=== PATIENT | female | born 1950 | race Two or more races ===

== ENCOUNTER 2016-11-22 16:47 | Inpatient (IN) | payer OTHER, MEDICAID ==
[~2016-11-22] VITALS: Ht 152.4 cm; Wt 116.2 kg
[~2016-11-22 16:47] MED LIST: ALLO100T PO; ALPR1TAB7 PO; ASPI-266 PO; CAPT12.533 PO; DOX100C PO; FURO20TA3 PO; GABA800T97 PO; INDO75CA PO; LEVO200T45 PO; LEVO25TA6 PO; LITH300T11 PO; LORA1TAB12 PO; METF-312 PO; METO-169 PO; NAP500T PO; OMEG1CAP10 PO; OXYB15TA12 PO; PENT400T21 PO; ZIPR80CA9 PO
[2016-11-23] MEDS ORDERED: SODIUM CHLORIDE 0.9% 250 ML IV ONE (09:28)
[2016-11-23] MEDS ORDERED: METOCLOPRAMIDE HCL 5MG/ml INJ 2ml VIAL IV ONE (09:30)
[2016-11-23] MEDS ORDERED: NALBUPHINE HCL 10 MG/1ml INJECTION IV ONE ×2 (09:30→15:15)
[2016-11-23 10:23] LABS: Basophils # (auto) 0.1 uL; Basophils % (auto) 0.5 % (0.0-2.0); Eosinophils # (auto) 0.3 uL; Eosinophils % (auto) 2.1 % (0.0-7.0); Hematocrit 44.3 % (36.0-46.0); Hemoglobin 14.6 g/dL (12.2-16.2); Lymphocytes # (auto) 2.9 uL; Lymphocytes % (auto) 22.9 % (10.0-50.0); Mean Corpuscular Hemoglobin 27.6 pg (28.0-32.0); Mean Corpuscular Hgb Conc. 32.9 g/dL (32.0-36.0); Mean Corpuscular Volume 83.9 fL (80.0-100.0); Mean Platelet Volume 7.9 fL (7.4-10.4); Monocytes # (auto) 0.9 uL; Monocytes % (auto) 7.6 % (0.0-12.0); Neutrophils # (auto) 8.3 uL; Neutrophils % (auto) 66.9 % (37.0-80.0); Platelet Count (auto) 320 10^3/uL (140-450); Red Cell Distribution Width 15.4 % (11.6-16.0); White Blood Cell 12.4 10^3/uL (4.4-10.8)
[2016-11-23 10:30] LABS: Albumin 3.5 g/dL (3.4-5.0); BUN/Creatinine Ratio 21.4; Bilirubin, Total 0.3 mg/dL (0.2-1.0); Calcium 9.8 mg/dL (8.5-10.1); Magnesium 1.9 mg/dL (1.6-2.6); Potassium 4.2 mmol/L (3.5-5.1); Total Protein 7.6 g/dL (6.4-8.2)
[2016-11-23 10:42] LABS: B-Type Natriuretic Peptide 10.5 pg/mL (0-100)
[2016-11-23 10:46] LABS: Temperature: 22.5 C (20.0-25.0)
[2016-11-23 13:16] LABS: Urine Bilirubin Negative (Negative); Urine Blood Negative /uL (Negative); Urine Color Colorless (Yellow); Urine Glucose Normal (Normal); Urine Ketone Negative (Negative); Urine Nitrite Negative (Negative); Urine RBC <1 /hpf (0 - 4); Urine Urobilinogen Normal (Negative)
[2016-11-23] MEDS ORDERED: cefTRIAXone 1GM/50ML D5W 50 ML IV ONE ×2 (15:30→16:00)
[2016-11-23] MEDS ORDERED: MORPHINE SULF INJ 2 MG/ML SYRINGE 1ML IV PRN (16:00)
[2016-11-23] MEDS ORDERED: HYDROcodone-ACET 5/325MG TAB PO PRN (16:00)
[2016-11-23] MEDS ORDERED: ACETAMINOPHEN 500 MG TAB PO PRN (16:00)
[2016-11-23] MEDS ORDERED: NITROGLYCERIN 0.4 MG SL TAB SL PRN (16:00)
[2016-11-23] MEDS ORDERED: PROMETHAZINE HCL 25 MG/ML 1ML IV PRN (16:00)
[2016-11-23] MEDS ORDERED: DEXTROSE (50%) 50ML SYRG IV PRN (16:00)
[2016-11-23] MEDS ORDERED: TEMAZEPAM 15 MG CAP PO PRN (16:00)
[2016-11-23] MEDS ORDERED: LORazepam 0.5 MG TAB PO PRN (16:00)
[2016-11-23] MEDS ORDERED: ASPirin-EC 81 mg tab PO ONE (16:45)
[2016-11-23] MEDS ORDERED: ENOXAPARIN SOD 40 MG/0.4 ML SYRINGE SC ONE (16:45)
[2016-11-23] MEDS: InsuLIN REG 1unit/0.01ml Soln (100units/ml) SC SCH ×2 (17:21→22:00)
[2016-11-23] MEDS: ACCU-CHEK COMFORT CURVE STRIP VI SCH ×2 (17:21→22:20)
[2016-11-23] MEDS ORDERED: LEVOTHYROXINE SODIUM 25 MCG TAB PO ONE (17:30)
[2016-11-23] MEDS ORDERED: LEVOTHYROXINE SODIUM 100 MCG TAB PO ONE (17:30)
[2016-11-23] MEDS ORDERED: GABAPENTIN 300 MG CAP PO ONE (17:30)
[2016-11-23] MEDS ORDERED: FAMOTIDINE 20 MG TAB PO ONE (17:30)
[2016-11-23] MEDS ORDERED: FUROSEMIDE 20 MG TAB PO ONE (17:30)
[2016-11-23] MEDS: OMEGA PO SCH (18:00)
[2016-11-23 19:19] VITALS: BP 102/55
[2016-11-23] MEDS ORDERED: INFLUENZA QUAD 2016-2017 0.5 ML SYRG IM ONE (19:30)
[2016-11-23] MEDS ORDERED: PNEUMOCOCCAL VACC POLYS 25 MCG/0.5 ML VIAL IM ONE (19:30)
[2016-11-23] MEDS: PENTOXIFYLLINE 400 MG ER TAB PO SCH (20:01)
[2016-11-23] MEDS: MORPHINE SULF INJ 2 MG/ML SYRINGE 1ML IV PRN (21:11)
[2016-11-23] MEDS ORDERED: PATIENTS OWN MEDICATION (Lorazepam 1 TAB) PO SCH (22:00)
[2016-11-23] MEDS: GABAPENTIN 300 MG CAP PO SCH (22:00)
[2016-11-23] MEDS: OXYBUTYNIN CHL 5 MG TAB PO SCH (22:11)
[2016-11-23] MEDS: LITHIUM CARBONATE 300 MG TAB PO SCH (22:11)
[2016-11-23] MEDS: ALLOPURINOL 100 MG TAB PO SCH (22:11)
[2016-11-23] MEDS: FAMOTIDINE 20 MG TAB PO SCH (22:11)
[2016-11-23] MEDS: ALPRAZolam 0.5 MG TAB PO SCH (22:12)
[2016-11-23 22:30] VITALS: BP 107/52
[2016-11-23] MEDS: ZIPRASIDONE HCL 80 MG CAP PO SCH (22:44)
[2016-11-24 00:31] VITALS: BP 98/58
[2016-11-24] MEDS: MORPHINE SULF INJ 2 MG/ML SYRINGE 1ML IV PRN ×2 (03:27→09:59)
[2016-11-24 05:30] VITALS: BP 90/57
[2016-11-24] MEDS: GABAPENTIN 300 MG CAP PO SCH ×2 (05:57→14:00)
[2016-11-24] MEDS: ALPRAZolam 0.5 MG TAB PO SCH ×2 (05:57→14:00)
[2016-11-24 06:12] LABS: Basophils # (auto) 0 uL; Basophils % (auto) 0.4 % (0.0-2.0); Eosinophils # (auto) 0.4 uL; Eosinophils % (auto) 4.5 % (0.0-7.0); Hematocrit 40.9 % (36.0-46.0); Hemoglobin 13.3 g/dL (12.2-16.2); Lymphocytes # (auto) 2.9 uL; Lymphocytes % (auto) 29.6 % (10.0-50.0); Mean Corpuscular Hemoglobin 27.1 pg (28.0-32.0); Mean Corpuscular Hgb Conc. 32.5 g/dL (32.0-36.0); Mean Corpuscular Volume 83.5 fL (80.0-100.0); Mean Platelet Volume 7.8 fL (7.4-10.4); Monocytes # (auto) 0.9 uL; Monocytes % (auto) 9.2 % (0.0-12.0); Neutrophils # (auto) 5.6 uL; Neutrophils % (auto) 56.3 % (37.0-80.0); Platelet Count (auto) 260 10^3/uL (140-450); Red Cell Distribution Width 15.6 % (11.6-16.0); White Blood Cell 9.9 10^3/uL (4.4-10.8)
[2016-11-24] MEDS: ACCU-CHEK COMFORT CURVE STRIP VI SCH ×3 (06:42→17:00)
[2016-11-24] MEDS: InsuLIN REG 1unit/0.01ml Soln (100units/ml) SC SCH ×3 (06:43→17:00)
[2016-11-24 06:54] LABS: Albumin 3.1 g/dL (3.4-5.0); BUN/Creatinine Ratio 23.8; Bilirubin, Total 0.3 mg/dL (0.2-1.0); Calcium 9.9 mg/dL (8.5-10.1); Potassium 3.9 mmol/L (3.5-5.1); Total Protein 6.7 g/dL (6.4-8.2)
[2016-11-24 08:00] VITALS: BP 112/61
[2016-11-24] MEDS: OMEGA PO SCH (08:00)
[2016-11-24] MEDS ORDERED: cefTRIAXone 1GM/50ML D5W 50 ML IV SCH (09:00)
[2016-11-24] MEDS: PENTOXIFYLLINE 400 MG ER TAB PO SCH ×2 (09:54→12:16)
[2016-11-24] MEDS: ZIPRASIDONE HCL 80 MG CAP PO SCH (09:54)
[2016-11-24] MEDS: OXYBUTYNIN CHL 5 MG TAB PO SCH (09:56)
[2016-11-24] MEDS: LITHIUM CARBONATE 300 MG TAB PO SCH (09:56)
[2016-11-24] MEDS: FAMOTIDINE 20 MG TAB PO SCH (09:58)
[2016-11-24] MEDS: ALLOPURINOL 100 MG TAB PO SCH (09:58)
[2016-11-24] MEDS ORDERED: FUROSEMIDE 20 MG TAB PO SCH (10:00)
[2016-11-24] MEDS ORDERED: CAPTOPRIL 12.5 MG TAB PO SCH (10:00)
[2016-11-24] MEDS ORDERED: METOPROLOL SUCCINATE XL 50 MG TAB PO SCH (10:00)
[2016-11-24] MEDS ORDERED: ENOXAPARIN SOD 40 MG/0.4 ML SYRINGE SC SCH (10:00)
[2016-11-24] MEDS ORDERED: LEVOTHYROXINE SODIUM 100 MCG TAB PO SCH (10:00)
[2016-11-24] MEDS ORDERED: ASPirin-EC 81 mg tab PO SCH (10:00)
[2016-11-24] MEDS ORDERED: LEVOTHYROXINE SODIUM 25 MCG TAB PO SCH (10:00)
[2016-11-24 12:00] VITALS: BP 116/64
== END 2016-11-24 15:00 | disposition home or self-care (01) | DRG 871 ==
LOC: ER 16:50 → TELE 16:51 → TELE-CENTR 11-23 18:14
PROVIDERS: ADMIT Internal Medicine; ATTEND Internal Medicine
PROC: 3E0234Z Introduction of Serum, Toxoid and Vaccine into Muscle, Percutaneous Approach (ICD-10-PCS; principal; 2016-11-23)
DX: A41.9 Sepsis, unspecified organism (principal); N17.0 Acute kidney failure with tubular necrosis; N39.0 Urinary tract infection, site not specified; I13.0 Hypertensive heart and chronic kidney disease with heart failure and stage 1 through stage 4 chronic kidney disease, or unspecified chronic kidney disease; F31.32 Bipolar disorder, current episode depressed, moderate; M75.102 Unspecified rotator cuff tear or rupture of left shoulder, not specified as traumatic; E86.0 Dehydration; S43.302A Subluxation of unspecified parts of left shoulder girdle, initial encounter; G89.29 Other chronic pain; M54.5 Low back pain; I50.9 Heart failure, unspecified; F41.9 Anxiety disorder, unspecified; F31.9 Bipolar disorder, unspecified; M19.011 Primary osteoarthritis, right shoulder; M10.9 Gout, unspecified; E05.90 Thyrotoxicosis, unspecified without thyrotoxic crisis or storm; E66.01 Morbid (severe) obesity due to excess calories; M50.30 Other cervical disc degeneration, unspecified cervical region; E11.21 Type 2 diabetes mellitus with diabetic nephropathy; E03.9 Hypothyroidism, unspecified; E11.22 Type 2 diabetes mellitus with diabetic chronic kidney disease; E88.81 Metabolic syndrome and other insulin resistance; M19.012 Primary osteoarthritis, left shoulder; N18.9 Chronic kidney disease, unspecified; Z81.8 Family history of other mental and behavioral disorders; Z82.0 Family history of epilepsy and other diseases of the nervous system; Z82.3 Family history of stroke; Z86.73 Personal history of transient ischemic attack (TIA), and cerebral infarction without residual deficits; Z82.49 Family history of ischemic heart disease and other diseases of the circulatory system; Z83.3 Family history of diabetes mellitus; Z79.82 Long term (current) use of aspirin; Z79.899 Other long term (current) drug therapy; Z23 Encounter for immunization
CPT/HCPCS: 36415; 51702; 71020; 72040; 73030; 80053; 80061; 81001; 81002; 82550; 82962; 83036; 83735; 83880; 84439; 84443; 84481; 84484; 85025; 85652; 86141; 87086; 87088; 87186; 93005; 94761; 96361; 96365; 96372; 96375; 96376; J0696; J1815

== ENCOUNTER 2018-09-02 09:26 | Inpatient (IN) | payer OTHER ==
[~2018-09-02] VITALS: Ht 152.4 cm; Wt 88.1 kg
[~2018-09-02 09:26] MED LIST changes: +ALL100T PO; -ALLO100T PO; -ALPR1TAB7 PO; -ASPI-266 PO; +ASPI81CH43 PO; -CAPT12.533 PO; +CARV3.1240 PO; +CHOL500014 PO; +CYCL5TAB PO; -DOX100C PO; +ESCI10TA53 PO; -FURO20TA3 PO; +GABA300C10 PO; -GABA800T97 PO; +HYDR-4795 PO; -INDO75CA PO; -LEVO200T45 PO; +LEVO200T46 PO; -LEVO25TA6 PO; -LITH300T11 PO; +LITH300T5 PO; -METF-312 PO; -METO-169 PO; -NAP500T PO; -OMEG1CAP10 PO; -PENT400T21 PO; +QUET50TA PO; +WARF6TAB20 PO; -ZIPR80CA9 PO
[2018-09-02] MEDS ORDERED: SODIUM CHLORIDE 0.9% 1,000 ML IV ONE ×3 (09:59→14:50)
[2018-09-02] MEDS ORDERED: SODIUM CHLORIDE 0.9% 500 ML IVB ONE (09:59)
[2018-09-02 10:45] LABS: Urine Bacteria FEW /hpf (None Seen); Urine Blood TRACE /uL (Negative); Urine Specific Gravity 1.009 (1.001-1.035); Urine WBC 233 /hpf (0 - 5); Urine WBC Clumps PRESENT /hpf (None Seen)
[2018-09-02 10:58] LABS: Basophils # (auto) 0.1 uL; Basophils % (auto) 0.6 % (0.0-2.0); Eosinophils # (auto) 0.1 uL; Eosinophils % (auto) 0.4 % (0.0-7.0); Hematocrit 33.5 % (36.0-46.0); Hemoglobin 10.2 g/dL (12.2-16.2); Lymphocytes # (auto) 2.1 uL; Lymphocytes % (auto) 13.6 % (10.0-50.0); Mean Corpuscular Hemoglobin 24.7 pg (28.0-32.0); Mean Corpuscular Hgb Conc. 30.6 g/dL (32.0-36.0); Mean Corpuscular Volume 80.9 fL (80.0-100.0); Monocytes % (auto) 6.7 % (0.0-12.0); Neutrophils % (auto) 78.7 % (37.0-80.0); Nucleated Red Blood Cells % 0.1 %; Platelet Count (auto) 557 10^3/uL (140-450); Red Blood Cells 4.14 10^6/uL (4.0-5.20); Red Cell Distribution Width 18.1 % (11.8-14.3); White Blood Cell 15.2 10^3/uL (4.4-10.8)
[2018-09-02 11:12] LABS: INR 1.07 (0.9-1.15); Partial Thromboplastin Time 28.6 sec (23.78-33.04); Prothrombin Time 11.4 sec (9.27-12.13)
[2018-09-02 11:13] LABS: Albumin 3.1 g/dL (3.4-5.0); Anion Gap 7 (5-15); Blood Urea Nitrogen 40 mg/dL (7-18); Calcium 12.6 mg/dL (8.5-10.1); Carbon Dioxide 21 mmol/L (21-32); Chloride 106 mmol/L (98-107); Glucose 121 mg/dL (74-106); Magnesium 2.1 mg/dL (1.6-2.6); Potassium 4.4 mmol/L (3.5-5.1); Sodium 134 mmol/L (136-145)
[2018-09-02 11:16] LABS: Alanine Aminotransferase 13 U/L (13-56); Alkaline Phosphatase 176 U/L (45-117); Aspartate Aminotransferase 13 U/L (15-37); BUN/Creatinine Ratio 20.4; Bilirubin, Total 0.3 mg/dL (0.2-1.0); GFR African American 33 mL/min; GFR Non-African American 27 mL/min; Total Protein 9.6 g/dL (6.4-8.2)
[2018-09-02] MEDS ORDERED: cefTRIAXone 1GM/10ml IVPUSH 10 ML IV ONE (11:45)
[2018-09-02 12:42] LABS: Alcohol, Urine < 3.0 mg/dL (0-5); Amphetamine Screen, Urine NEGATIVE (NEGATIVE); Barbiturate Scree,Urine NEGATIVE (NEGATIVE); Benzodiazephine Screen, Urine NEGATIVE (NEGATIVE); Cannabinoid Screen, Urine NEGATIVE (NEGATIVE); Cocaine Screen, Urine NEGATIVE (NEGATIVE); Opiate Scree,Urine NEGATIVE (NEGATIVE); Phencyclidine Screen, Urine NEGATIVE (NEGATIVE)
[2018-09-02] MEDS ORDERED: FUROSEMIDE 40 MG/4 ML VIAL IV ONE ×2 (13:30→13:45)
[2018-09-02] MEDS ORDERED: SODIUM CHLORIDE 0.9% 1,000 ML IV SCH (13:33)
[2018-09-02] MEDS ORDERED: TEMAZEPAM 15 MG CAP PO PRN (13:45)
[2018-09-02] MEDS ORDERED: LACTULOSE 20Gm/30ML SOLN PO PRN ×2 (13:45)
[2018-09-02] MEDS ORDERED: ONDANSETRON HCL 4 MG/2 ML VIAL IV PRN (13:45)
[2018-09-02] MEDS ORDERED: LABETALOL HCL 5 MG/ML ML 20ML VIAL IV PRN (13:45)
[2018-09-02] MEDS ORDERED: MORPHINE SULFATE 4 MG/ML SYR/VIAL IV PRN (13:45)
[2018-09-02] MEDS ORDERED: HYDROcodone-ACET 5/325MG TAB PO PRN (13:45)
[2018-09-02] MEDS ORDERED: NITROGLYCERIN 0.4 MG SL TAB SL PRN (13:45)
[2018-09-02] MEDS ORDERED: DEXTROSE (50%) 50ML SYRG IV PRN (13:45)
[2018-09-02] MEDS ORDERED: ASPirin 81 mg TAB PO ONE (14:00)
[2018-09-02] MEDS ORDERED: PANTOPRAZOLE 40 MG TAB PO ONE (14:00)
[2018-09-02] MEDS ORDERED: LACTULOSE 20Gm/30ML SOLN PO ONE (14:00)
[2018-09-02] MEDS ORDERED: ENOXAPARIN SOD 30 MG/0.3 ML SYRINGE SC ONE (14:00)
[2018-09-02] MEDS: LORazepam 0.5 MG TAB PO PRN (14:22)
[2018-09-02] MEDS ORDERED: ZIPR80CA8 PO (15:32)
[2018-09-02 15:33] LABS: CRP High Sensitivity 3.21 mg/dL (< 0.3)
[2018-09-02 17:00] VITALS: BP 152/42
[2018-09-02] MEDS: ACCU-CHEK COMFORT CURVE STRIP VI SCH ×2 (18:03→22:31)
[2018-09-02] MEDS: InsuLIN REG 1unit/0.01ml Soln (100units/ml) SC SCH ×2 (18:03→22:00)
[2018-09-02 19:42] VITALS: BP 152/42
[2018-09-02] MEDS: MORPHINE SULFATE 4 MG/ML SYR/VIAL IV PRN (19:53)
[2018-09-02 20:00] VITALS: BP 126/62
[2018-09-02 20:58] VITALS: BP 126/62
[2018-09-02] MEDS ORDERED: ATORVASTATIN 20 MG TAB PO SCH (22:00)
[2018-09-02] MEDS: SODIUM CHLORIDE 0.9% 1,000 ML IV SCH (22:30)
[2018-09-02] MEDS: ATORVASTATIN 20 MG TAB PO SCH (22:31)
[2018-09-03] VITALS (7 sets, daily range): BP systolic 97–156; BP diastolic 51–78
[2018-09-03] MEDS: MORPHINE SULFATE 4 MG/ML SYR/VIAL IV PRN (02:07)
[2018-09-03] MEDS: LORazepam 0.5 MG TAB PO PRN (02:54)
[2018-09-03 05:18] LABS: Basophils # (auto) 0.1 uL; Eosinophils # (auto) 0.3 uL; Hemoglobin 10.1 g/dL (12.2-16.2); Lymphocytes # (auto) 2.2 uL; Monocytes # (auto) 0.9 uL; Monocytes % (auto) 7.2 % (0.0-12.0); Neutrophils % (auto) 72.8 % (37.0-80.0)
[2018-09-03 05:21] LABS: Basophils % (auto) 0.7 % (0.0-2.0); Eosinophils % (auto) 2.6 % (0.0-7.0); Hematocrit 31.2 % (36.0-46.0); Lymphocytes % (auto) 16.7 % (10.0-50.0); Mean Corpuscular Hemoglobin 25.3 pg (28.0-32.0); Mean Corpuscular Hgb Conc. 32.3 g/dL (32.0-36.0); Mean Corpuscular Volume 78.3 fL (80.0-100.0); Neutrophils # (auto) 9.5 uL; Platelet Count (auto) 593 10^3/uL (140-450); Red Blood Cells 3.99 10^6/uL (4.0-5.20); Red Cell Distribution Width 18.6 % (11.8-14.3); White Blood Cell 13.1 10^3/uL (4.4-10.8)
[2018-09-03 05:31] LABS: Albumin 2.9 g/dL (3.4-5.0); BUN/Creatinine Ratio 20.2; Calcium 12.4 mg/dL (8.5-10.1); Potassium 3.7 mmol/L (3.5-5.1)
[2018-09-03 05:37] LABS: Bilirubin, Total 0.4 mg/dL (0.2-1.0); Total Protein 8.4 g/dL (6.4-8.2)
[2018-09-03] MEDS: InsuLIN REG 1unit/0.01ml Soln (100units/ml) SC SCH ×4 (06:42→22:00)
[2018-09-03] MEDS: ACCU-CHEK COMFORT CURVE STRIP VI SCH ×4 (06:42→22:12)
[2018-09-03] MEDS: SODIUM CHLORIDE 0.9% 1,000 ML IV SCH ×2 (09:56→18:30)
[2018-09-03] MEDS: ENOXAPARIN SOD 30 MG/0.3 ML SYRINGE SC SCH (09:56)
[2018-09-03] MEDS: ASPirin 81 mg TAB PO SCH (09:57)
[2018-09-03] MEDS: PANTOPRAZOLE 40 MG TAB PO SCH (09:57)
[2018-09-03] MEDS ORDERED: ENOXAPARIN SOD 40 MG/0.4 ML SYRINGE SC SCH (10:00)
[2018-09-03] MEDS ORDERED: POTASSIUM CHL 20MEQ/100ML 100 ML IV ONE ×2 (12:15→18:45)
[2018-09-03] MEDS ORDERED: LEVOFLOXACIN 250MG 50 ML IV SCH (12:15)
[2018-09-03 13:29] LABS: Folate (Folic Acid) 6.81 ng/mL (5.38-24)
[2018-09-03] MEDS: ACETAMINOPHEN 500 MG TAB PO PRN (16:25)
[2018-09-03] MEDS: LEVOFLOXACIN 250MG 50 ML IV SCH (17:48)
[2018-09-03] MEDS: ATORVASTATIN 20 MG TAB PO SCH (22:11)
[2018-09-03] MEDS: ASCORBIC ACID 500 MG TAB PO SCH (22:12)
[2018-09-04] MEDS: SODIUM CHLORIDE 0.9% 1,000 ML IV SCH ×2 (03:44→16:06)
[2018-09-04 05:00] VITALS: BP 138/65
[2018-09-04] MEDS: ACCU-CHEK COMFORT CURVE STRIP VI SCH ×4 (06:35→22:26)
[2018-09-04] MEDS: InsuLIN REG 1unit/0.01ml Soln (100units/ml) SC SCH ×4 (06:35→22:00)
[2018-09-04 06:45] LABS: Basophils # (auto) 0.1 uL; Hematocrit 30.2 % (36.0-46.0); Hemoglobin 9.7 g/dL (12.2-16.2)
[2018-09-04 06:51] LABS: Basophils % (auto) 0.7 % (0.0-2.0); Eosinophils % (auto) 7.9 % (0.0-7.0); Lymphocytes # (auto) 2.3 uL; Lymphocytes % (auto) 18.3 % (10.0-50.0); Mean Corpuscular Hemoglobin 25.1 pg (28.0-32.0); Mean Corpuscular Hgb Conc. 32.2 g/dL (32.0-36.0); Monocytes # (auto) 0.8 uL; Monocytes % (auto) 6.5 % (0.0-12.0); Neutrophils # (auto) 8.5 uL; Neutrophils % (auto) 66.6 % (37.0-80.0); Nucleated Red Blood Cells % 0.1 %; Platelet Count (auto) 572 10^3/uL (140-450); Red Blood Cells 3.87 10^6/uL (4.0-5.20); Red Cell Distribution Width 18.4 % (11.8-14.3); White Blood Cell 12.7 10^3/uL (4.4-10.8)
[2018-09-04 07:00] LABS: BUN/Creatinine Ratio 16.4; Calcium 11.4 mg/dL (8.5-10.1); Magnesium 1.8 mg/dL (1.6-2.6); Potassium 3.5 mmol/L (3.5-5.1)
[2018-09-04 08:00] VITALS: BP_SYST 138; BP_SYST 153; BP_DIAS 65; BP_DIAS 75
[2018-09-04] MEDS: PANTOPRAZOLE 40 MG TAB PO SCH (10:34)
[2018-09-04] MEDS: MULTIPLE VITAMIN TAB PO SCH (10:34)
[2018-09-04] MEDS: ASPirin 81 mg TAB PO SCH (10:34)
[2018-09-04] MEDS: LEVOFLOXACIN 250MG 50 ML IV SCH (10:35)
[2018-09-04] MEDS: ENOXAPARIN SOD 30 MG/0.3 ML SYRINGE SC SCH (10:37)
[2018-09-04 13:00] VITALS: BP 136/71
[2018-09-04] MEDS ORDERED: ERTAPENEM SOD INJ 1 GM in SODIUM CHL 0.9% 50 ML IV ONE (15:30)
[2018-09-04] MEDS: ERTAPENEM SOD INJ 0.5 GM in SODIUM CHL 0.9% 50 ML IV SCH (16:06)
[2018-09-04] MEDS: ASCORBIC ACID 500 MG TAB PO SCH ×2 (16:06→22:24)
[2018-09-04 17:00] VITALS: BP 123/63
[2018-09-04 20:00] VITALS: BP 125/81
[2018-09-04 22:08] VITALS: BP 125/81
[2018-09-04] MEDS: ATORVASTATIN 20 MG TAB PO SCH (22:24)
[2018-09-05 04:58] VITALS: BP 127/56
[2018-09-05 05:31] LABS: Basophils # (auto) 0.1 uL; Lymphocytes # (auto) 2.4 uL; Monocytes # (auto) 0.8 uL; Red Cell Distribution Width 18.8 % (11.8-14.3)
[2018-09-05 05:39] LABS: Basophils % (auto) 0.9 % (0.0-2.0); Eosinophils # (auto) 1.1 uL; Eosinophils % (auto) 9.7 % (0.0-7.0); Hemoglobin 9.9 g/dL (12.2-16.2); Lymphocytes % (auto) 21.1 % (10.0-50.0); Mean Corpuscular Hemoglobin 25.1 pg (28.0-32.0); Mean Corpuscular Volume 78.5 fL (80.0-100.0); Monocytes % (auto) 6.7 % (0.0-12.0); Neutrophils # (auto) 6.9 uL; Neutrophils % (auto) 61.6 % (37.0-80.0); Red Blood Cells 3.95 10^6/uL (4.0-5.20); White Blood Cell 11.3 10^3/uL (4.4-10.8)
[2018-09-05 05:41] LABS: Platelet Count (auto) 539 10^3/uL (140-450)
[2018-09-05 05:44] LABS: Calcium 11.3 mg/dL (8.5-10.1)
[2018-09-05 05:46] LABS: BUN/Creatinine Ratio 15.6
[2018-09-05] MEDS: InsuLIN REG 1unit/0.01ml Soln (100units/ml) SC SCH ×2 (06:30→11:30)
[2018-09-05] MEDS: ACCU-CHEK COMFORT CURVE STRIP VI SCH ×2 (06:31→11:58)
[2018-09-05 08:00] VITALS: BP 156/70
[2018-09-05 08:22] VITALS: BP 145/75
[2018-09-05] MEDS: ERTAPENEM SOD INJ 0.5 GM in SODIUM CHL 0.9% 50 ML IV SCH (09:36)
[2018-09-05] MEDS: MULTIPLE VITAMIN TAB PO SCH (09:37)
[2018-09-05] MEDS: ASCORBIC ACID 500 MG TAB PO SCH (09:37)
[2018-09-05] MEDS: PANTOPRAZOLE 40 MG TAB PO SCH (09:37)
[2018-09-05] MEDS: ENOXAPARIN SOD 30 MG/0.3 ML SYRINGE SC SCH (09:37)
[2018-09-05] MEDS: ASPirin 81 mg TAB PO SCH (09:37)
[2018-09-05] MEDS: SODIUM CHLORIDE 0.9% 1,000 ML IV SCH ×2 (10:00)
[2018-09-05 11:43] VITALS: BP 149/62
[2018-09-05] MEDS ORDERED: ERTAPENEM SOD INJ 0.5 GM in SODIUM CHL 0.9% 50 ML IV ONE (13:00)
[2018-09-05 13:05] VITALS: BP 156/70
[2018-09-05] MEDS: ACETAMINOPHEN 500 MG TAB PO PRN (15:04)
[2018-09-05 17:00] VITALS: BP 142/77
[2018-09-06] MEDS ORDERED: ERTAPENEM SOD INJ 1 GM in SODIUM CHL 0.9% 50 ML IV SCH (10:00)
== END 2018-09-05 17:30 | disposition home or self-care (01) | DRG 682 ==
LOC: EDBD 09:26 → ER 09:26 → TELE 09:27 → TELE-EAST 14:35
PROVIDERS: ADMIT Internal Medicine; ATTEND Family Medicine
DX: N17.9 Acute kidney failure, unspecified (principal); G92 Toxic encephalopathy; N39.0 Urinary tract infection, site not specified; E44.1 Mild protein-calorie malnutrition; I69.354 Hemiplegia and hemiparesis following cerebral infarction affecting left non-dominant side; N18.4 Chronic kidney disease, stage 4 (severe); E83.52 Hypercalcemia; E66.01 Morbid (severe) obesity due to excess calories; E03.9 Hypothyroidism, unspecified; D63.1 Anemia in chronic kidney disease; E78.5 Hyperlipidemia, unspecified; E11.21 Type 2 diabetes mellitus with diabetic nephropathy; F20.9 Schizophrenia, unspecified; F31.9 Bipolar disorder, unspecified; G47.33 Obstructive sleep apnea (adult) (pediatric); I48.91 Unspecified atrial fibrillation; I12.9 Hypertensive chronic kidney disease with stage 1 through stage 4 chronic kidney disease, or unspecified chronic kidney disease; E11.22 Type 2 diabetes mellitus with diabetic chronic kidney disease; M54.9 Dorsalgia, unspecified; G89.29 Other chronic pain; M10.9 Gout, unspecified; M19.90 Unspecified osteoarthritis, unspecified site; R29.6 Repeated falls; B96.1 Klebsiella pneumoniae [K. pneumoniae] as the cause of diseases classified elsewhere; Z79.82 Long term (current) use of aspirin; Z79.899 Other long term (current) drug therapy; Z80.0 Family history of malignant neoplasm of digestive organs; Z80.1 Family history of malignant neoplasm of trachea, bronchus and lung; Z80.3 Family history of malignant neoplasm of breast; Z80.41 Family history of malignant neoplasm of ovary; Z80.8 Family history of malignant neoplasm of other organs or systems; Z81.8 Family history of other mental and behavioral disorders; Z82.0 Family history of epilepsy and other diseases of the nervous system; Z82.3 Family history of stroke; Z82.49 Family history of ischemic heart disease and other diseases of the circulatory system; Z82.5 Family history of asthma and other chronic lower respiratory diseases; Z82.62 Family history of osteoporosis; Z83.3 Family history of diabetes mellitus; Z95.0 Presence of cardiac pacemaker; Z68.37 Body mass index [BMI] 37.0-37.9, adult
CPT/HCPCS: 36415; 70450; 71045; 80048; 80053; 80061; 80307; 81001; 82150; 82550; 82607; 82746; 82962; 83036; 83605; 83690; 83735; 83970; 84155; 84156; 84165; 84166; 84443; 84484; 85025; 85045; 85610; 85652; 85730; 86141; 87040; 87081; 87086; 87088; 87186; 92610; 93005; 93306; 93886; 94660; 95819; 96361; 96374; 97110; 97163; 97530; J0696; J1335; J1815; J3480

== ENCOUNTER 2019-01-05 12:46 | Inpatient (IN) | payer OTHER | END 2019-01-11 18:56 | disposition home or self-care (01) | LOC: ER 12:46 → TELE 17:53 → TELE-EAST 22:12 | DX: A41.9 Sepsis, unspecified organism (principal); G93.41 Metabolic encephalopathy; I16.1 Hypertensive emergency; I12.9 Hypertensive chronic kidney disease with stage 1 through stage 4 chronic kidney disease, or unspecified chronic kidney disease; N18.3 Chronic kidney disease, stage 3 (moderate); E66.01 Morbid (severe) obesity due to excess calories; E11.22 Type 2 diabetes mellitus with diabetic chronic kidney disease; E78.5 Hyperlipidemia, unspecified; E03.9 Hypothyroidism, unspecified ==

== ENCOUNTER 2019-05-14 14:33 | Inpatient (IN) | payer OTHER | END 2019-05-18 18:55 | disposition home or self-care (01) | LOC: ER 14:33 → OVERFLOW 14:34 → EAST 23:33 | DX: A41.9 Sepsis, unspecified organism (principal); G93.41 Metabolic encephalopathy; N39.0 Urinary tract infection, site not specified; L89.322 Pressure ulcer of left buttock, stage 2; N18.3 Chronic kidney disease, stage 3 (moderate); E83.52 Hypercalcemia; E11.8 Type 2 diabetes mellitus with unspecified complications; I10 Essential (primary) hypertension; E07.9 Disorder of thyroid, unspecified ==

== ENCOUNTER 2019-10-02 19:21 | Emergency (ER) | payer BC, OTHER ==
[~2019-10-02] VITALS: Ht 165.1 cm; Wt 113.4 kg
[~2019-10-02 19:21] MED LIST changes: -ALL100T PO; -ASPI81CH43 PO; -CHOL500014 PO; +CITA10TA70 PO; -CYCL5TAB PO; -ESCI10TA53 PO; +FAM20T PO; +PRAV20TA3 PO; -WARF6TAB20 PO; +ZIPR80CA8 PO
[2019-10-02 21:25] LABS: Basophils # (auto) 0.1 uL; Basophils % (auto) 0.9 % (0.0-2.0); Eosinophils # (auto) 0.6 uL; Eosinophils % (auto) 5.6 % (0.0-7.0); Hematocrit 33.9 % (36.0-46.0); Hemoglobin 11.2 g/dL (12.2-16.2); Lymphocytes # (auto) 2.4 uL; Lymphocytes % (auto) 22.6 % (10.0-50.0); Mean Corpuscular Hemoglobin 27.5 pg (28.0-32.0); Mean Corpuscular Hgb Conc. 33.2 g/dL (32.0-36.0); Mean Corpuscular Volume 82.9 fL (80.0-100.0); Monocytes # (auto) 1.1 uL; Monocytes % (auto) 10.4 % (0.0-12.0); Neutrophils # (auto) 6.4 uL; Neutrophils % (auto) 60.5 % (37.0-80.0); Platelet Count (auto) 315 10^3/uL (140-450); Red Blood Cells 4.09 10^6/uL (4.0-5.20); Red Cell Distribution Width 14.6 % (11.8-14.3); White Blood Cell 10.6 10^3/uL (4.4-10.8)
[2019-10-02 21:34] LABS: INR 1.05 (0.9-1.15); Partial Thromboplastin Time 32.8 sec (23.64-32.05)
[2019-10-02 21:37] LABS: Alanine Aminotransferase 15 U/L (13-56); Albumin 3.1 g/dL (3.4-5.0); Amylase 66 U/L (25-115); Anion Gap 5 (5-15); Aspartate Aminotransferase 15 U/L (15-37); BUN/Creatinine Ratio 15.7; Blood Urea Nitrogen 27 mg/dL (7-18); Calcium 9.6 mg/dL (8.5-10.1); Carbon Dioxide 24 mmol/L (21-32); Chloride 94 mmol/L (98-107); GFR African American 38 mL/min; GFR Non-African American 31 mL/min; Glucose 106 mg/dL (74-106); Lipase 280 U/L (73-393); Magnesium 1.8 mg/dL (1.6-2.6); Potassium 4.2 mmol/L (3.5-5.1); Sodium 123 mmol/L (136-145)
[2019-10-02 21:42] LABS: Alkaline Phosphatase 129 U/L (45-117); Bilirubin, Total 0.3 mg/dL (0.2-1.0); Total Protein 7.5 g/dL (6.4-8.2)
[2019-10-02 22:03] LABS: Urine Bacteria NONE SEEN /hpf (None Seen); Urine Blood 1+ /uL (Negative); Urine Specific Gravity 1.004 (1.001-1.035); Urine WBC 65 /hpf (0 - 5)
[2019-10-02] MEDS ORDERED: SODIUM CHL 3% 500 ML IV ONE (22:15)
[2019-10-02 22:24] LABS: Alcohol, Urine < 3.0 mg/dL (0-5); Amphetamine Screen, Urine NEGATIVE (NEGATIVE); Barbiturate Scree,Urine NEGATIVE (NEGATIVE); Benzodiazephine Screen, Urine NEGATIVE (NEGATIVE); Cannabinoid Screen, Urine NEGATIVE (NEGATIVE); Cocaine Screen, Urine NEGATIVE (NEGATIVE); Opiate Scree,Urine NEGATIVE (NEGATIVE); Phencyclidine Screen, Urine NEGATIVE (NEGATIVE)
[2019-10-02] MEDS ORDERED: cefTRIAXone 1GM/50ML D5W 50 ML IV ONE (22:30)
[2019-10-03 01:24] LABS: BUN/Creatinine Ratio 17.3; Calcium 9.6 mg/dL (8.5-10.1); Potassium 4.1 mmol/L (3.5-5.1)
[2019-10-03 03:23] LABS: BUN/Creatinine Ratio 16.9; Calcium 9.9 mg/dL (8.5-10.1); Potassium 4.3 mmol/L (3.5-5.1)
[2019-10-03] MEDS ORDERED: FUROSEMIDE 20 MG/2 ML VIAL IV ONE (04:45)
[2019-10-03 11:16] VITALS: BP 128/66
[2019-10-16] MEDS ORDERED: BISA10SU45 RE (04:50)
[2019-10-16] MEDS ORDERED: ONDA-155 PO (04:50)
[2019-10-16] MEDS ORDERED: ACET650S12 RE (04:50)
[2019-10-16] MEDS ORDERED: HYOS0.1269 (04:50)
== END 2019-10-03 11:24 | disposition home or self-care (01) ==
LOC: EDBD 19:21 → ER 19:21
DX: E87.1 Hypo-osmolality and hyponatremia (principal); E11.22 Type 2 diabetes mellitus with diabetic chronic kidney disease; I12.9 Hypertensive chronic kidney disease with stage 1 through stage 4 chronic kidney disease, or unspecified chronic kidney disease; N18.9 Chronic kidney disease, unspecified; N39.0 Urinary tract infection, site not specified; F31.9 Bipolar disorder, unspecified; E78.5 Hyperlipidemia, unspecified; Z86.73 Personal history of transient ischemic attack (TIA), and cerebral infarction without residual deficits; Z95.0 Presence of cardiac pacemaker; Z87.891 Personal history of nicotine dependence
CPT/HCPCS: 36415; 71045; 74176; 80048; 80053; 80307; 81001; 82150; 83605; 83690; 83735; 83880; 83930; 83935; 84295; 84484; 85025; 85610; 85730; 87086; 96365; 96375; 99284; J0696; J1940; 87088; 87186

== ENCOUNTER 2019-10-07 17:47 | Emergency (ER) | payer BC, MEDICAID ==
[~2019-10-07] VITALS: Ht 152.4 cm; Wt 90.7 kg
[2019-10-07 18:56] LABS: Hemoglobin 12.5 g/dL (12.2-16.2); Red Blood Cells 4.55 10^6/uL (4.0-5.20)
[2019-10-07 18:59] LABS: Basophils # (auto) 0.1 uL; Basophils % (auto) 0.9 % (0.0-2.0); Eosinophils # (auto) 0.5 uL; Eosinophils % (auto) 5.7 % (0.0-7.0); Hematocrit 38.4 % (36.0-46.0); Lymphocytes % (auto) 20.4 % (10.0-50.0); Mean Corpuscular Hemoglobin 27.6 pg (28.0-32.0); Mean Corpuscular Hgb Conc. 32.6 g/dL (32.0-36.0); Mean Corpuscular Volume 84.5 fL (80.0-100.0); Monocytes # (auto) 1.2 uL; Monocytes % (auto) 12.2 % (0.0-12.0); Neutrophils # (auto) 5.9 uL; Neutrophils % (auto) 60.8 % (37.0-80.0); Platelet Count (auto) 320 10^3/uL (140-450); Red Cell Distribution Width 15.3 % (11.8-14.3); White Blood Cell 9.6 10^3/uL (4.4-10.8)
[2019-10-07 19:04] LABS: Albumin 3.6 g/dL (3.4-5.0); Anion Gap 5 (5-15); Blood Urea Nitrogen 41 mg/dL (7-18); Calcium 10.6 mg/dL (8.5-10.1); Carbon Dioxide 26 mmol/L (21-32); Chloride 101 mmol/L (98-107); Glucose 94 mg/dL (74-106); Potassium 4.1 mmol/L (3.5-5.1); Sodium 132 mmol/L (136-145)
[2019-10-07 19:08] LABS: Alanine Aminotransferase 14 U/L (13-56); Alkaline Phosphatase 153 U/L (45-117); Aspartate Aminotransferase 17 U/L (15-37); BUN/Creatinine Ratio 18.6; Bilirubin, Total 0.2 mg/dL (0.2-1.0); GFR African American 29 mL/min; GFR Non-African American 24 mL/min; Total Protein 7.9 g/dL (6.4-8.2)
[2019-10-08 00:16] LABS: Amylase 83 U/L (25-115); Lipase 435 U/L (73-393)
[2019-10-08 01:29] LABS: Urine Bacteria FEW /hpf (None Seen); Urine Blood 2+ /uL (Negative); Urine Specific Gravity 1.005 (1.001-1.035); Urine WBC 9 /hpf (0 - 5)
[2019-10-08 01:48] LABS: Alcohol, Urine < 3.0 mg/dL (0-5); Amphetamine Screen, Urine NEGATIVE (NEGATIVE); Barbiturate Scree,Urine NEGATIVE (NEGATIVE); Benzodiazephine Screen, Urine NEGATIVE (NEGATIVE); Cannabinoid Screen, Urine NEGATIVE (NEGATIVE); Cocaine Screen, Urine NEGATIVE (NEGATIVE); Opiate Scree,Urine NEGATIVE (NEGATIVE); Phencyclidine Screen, Urine NEGATIVE (NEGATIVE)
[2019-10-08] MEDS ORDERED: SODIUM CHLORIDE 0.9% 1,000 ML IV ONE ×2 (07:00)
[2019-10-08] MEDS ORDERED: LEVOFLOXACIN 500MG 100 ML IV ONE (07:00)
[2019-10-08 10:48] VITALS: BP 107/49
== END 2019-10-08 10:53 | disposition home or self-care (01) ==
LOC: EDBD 17:47 → ER 18:03
DX: K85.90 Acute pancreatitis without necrosis or infection, unspecified (principal); N17.9 Acute kidney failure, unspecified; R11.2 Nausea with vomiting, unspecified; E11.22 Type 2 diabetes mellitus with diabetic chronic kidney disease; I13.0 Hypertensive heart and chronic kidney disease with heart failure and stage 1 through stage 4 chronic kidney disease, or unspecified chronic kidney disease; N18.9 Chronic kidney disease, unspecified; I50.89 Other heart failure; E78.5 Hyperlipidemia, unspecified; Z86.73 Personal history of transient ischemic attack (TIA), and cerebral infarction without residual deficits; Z95.0 Presence of cardiac pacemaker
CPT/HCPCS: 36415; 74176; 80053; 80307; 81001; 82150; 83605; 83690; 84484; 85025; 93005; 96361; 96365; 96366; 99284; J1956; J7030

== ENCOUNTER 2019-10-08 16:01 | Emergency (ER) | payer BC, MEDICAID ==
[~2019-10-08] VITALS: Ht 162.6 cm; Wt 81.6 kg
[2019-10-08] MEDS ORDERED: SODIUM CHLORIDE 0.9% 500 ML IVB ONE (16:24)
[2019-10-08 17:03] LABS: Basophils # (auto) 0.1 uL; Basophils % (auto) 0.9 % (0.0-2.0); Eosinophils # (auto) 0.3 uL; Eosinophils % (auto) 3.7 % (0.0-7.0); Hematocrit 35.8 % (36.0-46.0); Hemoglobin 11.8 g/dL (12.2-16.2); Lymphocytes # (auto) 1.9 uL; Lymphocytes % (auto) 21.8 % (10.0-50.0); Mean Corpuscular Hemoglobin 27.6 pg (28.0-32.0); Mean Corpuscular Volume 83.6 fL (80.0-100.0); Monocytes # (auto) 0.9 uL; Monocytes % (auto) 10.4 % (0.0-12.0); Neutrophils # (auto) 5.4 uL; Neutrophils % (auto) 63.2 % (37.0-80.0); Platelet Count (auto) 300 10^3/uL (140-450); Red Blood Cells 4.28 10^6/uL (4.0-5.20); Red Cell Distribution Width 15.3 % (11.8-14.3); White Blood Cell 8.6 10^3/uL (4.4-10.8)
[2019-10-08 17:19] LABS: Albumin 3.4 g/dL (3.4-5.0); Calcium 10.5 mg/dL (8.5-10.1); Potassium 4.3 mmol/L (3.5-5.1)
[2019-10-08 17:23] LABS: BUN/Creatinine Ratio 17.3; Bilirubin, Total 0.3 mg/dL (0.2-1.0); Total Protein 7.4 g/dL (6.4-8.2)
[2019-10-08 23:06] LABS: Urine Bacteria MANY /hpf (None Seen); Urine Blood TRACE /uL (Negative); Urine Specific Gravity 1.004 (1.001-1.035); Urine WBC 5 /hpf (0 - 5)
[2019-10-09 01:32] VITALS: BP 124/63
[2019-10-16] MEDS ORDERED: ACET650S12 RE (04:50)
[2019-10-16] MEDS ORDERED: HYOS0.1269 (04:50)
[2019-10-16] MEDS ORDERED: BISA10SU45 RE (04:50)
[2019-10-16] MEDS ORDERED: ONDA-155 PO (04:50)
[2019-10-16] MEDS ORDERED: FURO20TA3 PO (13:12)
[2019-10-16] MEDS ORDERED: CAR3125T PO (13:12)
[2019-10-16] MEDS ORDERED: LEVO125T7 PO (13:12)
[2019-10-16] MEDS ORDERED: ATO40T PO (13:12)
[2019-10-16] MEDS ORDERED: ZIPR80CA8 PO (13:12)
[2019-10-16] MEDS ORDERED: LEVO-28 PO (13:12)
[2019-10-16] MEDS ORDERED: CEPH500C PO (13:12)
[2019-10-16] MEDS ORDERED: CITA10TA70 PO (13:12)
[2019-10-16] MEDS ORDERED: ASPI81CH43 PO (13:12)
== END 2019-10-09 01:40 | disposition home or self-care (01) ==
LOC: EDBD 16:01 → ER 16:13
DX: K80.20 Calculus of gallbladder without cholecystitis without obstruction (principal); E11.22 Type 2 diabetes mellitus with diabetic chronic kidney disease; I12.9 Hypertensive chronic kidney disease with stage 1 through stage 4 chronic kidney disease, or unspecified chronic kidney disease; N18.9 Chronic kidney disease, unspecified; E78.5 Hyperlipidemia, unspecified; Z87.891 Personal history of nicotine dependence; Z86.73 Personal history of transient ischemic attack (TIA), and cerebral infarction without residual deficits; Z87.440 Personal history of urinary (tract) infections; Z79.899 Other long term (current) drug therapy; Z95.0 Presence of cardiac pacemaker
CPT/HCPCS: 36415; 76705; 80053; 81001; 83690; 85025; 93005; 99284; J7040